=== PATIENT | female | born 1980 | race Caucasian/White ===

== ENCOUNTER → 2018-06-01 | Outpatient (CLI) | payer BC ==
--- NOTE | 2018-06-01 13:07 | Diagnostic Imaging Report ---
INDICATION: Kidney stones. TIME OF EXAM: 12:50 p.m. COMPARISON: No prior studies are available for comparison. FINDINGS: There are surgical clips in right upper quadrant. Bowel gas pattern is nonobstructed. No definite radiopaque urinary tract calculi are seen. IMPRESSION: No acute abnormality is detected. Dictated by: Dictated on workstation # [id number]
== END ==
LOC: RAD 12:41
PROVIDERS: ATTEND Urology
DX: N20.0 Calculus of kidney (principal)
CPT/HCPCS: 74018

== ENCOUNTER → 2018-06-08 | Outpatient (CLI) | payer BC ==
--- NOTE | 2018-06-08 15:39 | Diagnostic Imaging Report ---
INDICATION: Nephrolithiasis. EXAMINATION: KUB at 2:50 p.m. FINDINGS: Gallbladder is surgically absent. Bowel gas pattern is normal. There are no pathologic masses or calcifications seen. There are some phleboliths in the pelvis. IMPRESSION: Unremarkable KUB. Dictated by: Dictated on workstation # [id number]
--- NOTE | 2018-06-08 15:45 | Diagnostic Imaging Report ---
PROCEDURE: CT urinary tract, rule out kidney stone. TECHNIQUE: Multiple contiguous axial images were obtained through the abdomen and pelvis without the use of intravenous contrast. Auto Exposure Controls were utilized during the CT exam to meet ALARA standards for radiation dose reduction. INDICATION: Left flank pain. FINDINGS: There are some extra-ureteral pelvic phleboliths present. No definite opaque ureteral stone. There is no hydroureteronephrosis. Intrarenal stones bilaterally are nonobstructing measuring 2 mm in upper pole calyx on the right and 2 mm in the lower pole calyces bilaterally. No perinephric or periureteric edema. There is mild hepatic steatosis. No bile duct dilatation post cholecystectomy. The pancreas is negative. Spleen and adrenals are negative. There is no ascites, abscess, hematoma, or other fluid collection. There is no bowel obstruction or ileus. The uterus is absent. No adnexal lesion. The urinary bladder is unremarkable. There is no evidence for appendicitis or diverticulitis. IMPRESSION: 1. Nonobstructing bilateral intrarenal stones. No hydronephrosis or convincing ureteral stone. Pelvic phleboliths noted. No acute appearing abnormality. 2. Hepatic steatosis. No ascites or fluid collection. Dictated by: Dictated on workstation # [id number]
== END ==
LOC: RAD 14:33
PROVIDERS: ATTEND Urology
DX: N20.0 Calculus of kidney (principal); K76.0 Fatty (change of) liver, not elsewhere classified; I87.8 Other specified disorders of veins; Z90.49 Acquired absence of other specified parts of digestive tract
CPT/HCPCS: 74018; 74176

== ENCOUNTER → 2018-07-14 | Outpatient (CLI) | payer BC ==
--- NOTE | 2018-07-14 16:39 | Diagnostic Imaging Report ---
PROCEDURE: CT abdomen and pelvis without contrast. TECHNIQUE: Multiple contiguous axial images were obtained through the abdomen and pelvis without the use of intravenous contrast. Auto Exposure Controls were utilized during the CT exam to meet ALARA standards for radiation dose reduction. INDICATION: Back pain and hematuria. COMPARISON: CT abdomen and pelvis 06/08/2018. FINDINGS: Evaluation of the abdominal viscera is mildly limited without contrast. Lower chest: Stable calcified left pulmonary nodule compatible with old granulomatous infection. Remainder of the lungs are clear. Peritoneum: No free intraperitoneal air or fluid. Liver and biliary system: Diffuse hypoattenuation of the liver is unchanged and indicative of hepatic steatosis. The liver remains borderline enlarged measuring 18.5 cm in length. Cholecystectomy. No biliary duct dilatation. Spleen and Pancreas: Spleen is normal. Unenhanced pancreas is grossly normal. Adrenals: Normal. tract: Multiple bilateral punctate 2 mm nonobstructing renal stones are unchanged. No ureteral stone or obstructive uropathy. No solid renal mass by noncontrast imaging. Urinary bladder is normally filled without wall thickening. Status post hysterectomy. GI tract: Stomach is decompressed. No bowel obstruction. No pericolonic inflammatory changes. Normal appendix. Vasculature and Lymph nodes: Normal caliber aorta. No abdominal or pelvic lymphadenopathy. Musculoskeletal: No concerning osseous lesion. IMPRESSION: 1. Unchanged bilateral punctate nonobstructing renal stones. No obstructive uropathy. 2. Diffuse hepatic steatosis. Dictated by: Dictated on workstation # [id number]
== END ==
LOC: RAD 15:55
PROVIDERS: ATTEND Nurse Practitioner Family
DX: N20.0 Calculus of kidney (principal); K76.0 Fatty (change of) liver, not elsewhere classified; Z90.710 Acquired absence of both cervix and uterus; Z90.49 Acquired absence of other specified parts of digestive tract
CPT/HCPCS: 74176

== ENCOUNTER → 2019-03-07 | Outpatient (CLI) | payer BC ==
--- NOTE | 2019-03-07 15:56 | Diagnostic Imaging Report ---
INDICATION: Low back pain. TIME OF EXAM: 3:45 PM FINDINGS: Multiple views of the lumbar spine were obtained. Curvature and alignment is normal. Vertebral body heights are well-maintained. No acute compression fracture is seen. Disc spaces are well-maintained. IMPRESSION: No acute bony abnormality is detected. Dictated by: Dictated on workstation # [id number]
== END ==
LOC: RAD 15:04
PROVIDERS: ATTEND Family Medicine
DX: M54.5 Low back pain (principal)
CPT/HCPCS: 72100

== ENCOUNTER → 2019-06-22 | Outpatient (CLI) | payer BC ==
--- NOTE | 2019-06-22 09:36 | Diagnostic Imaging Report ---
PROCEDURE: MRI lumbar spine. TECHNIQUE: Multiplanar, multisequence MRI of the lumbar spine was performed without contrast. INDICATION: Low back pain as well as right hip and leg pain. Patient does have history of breast carcinoma. No prior studies are available for comparison. Curvature and alignment of the lumbar spine is normal. The vertebral body heights are maintained. The marrow signal intensity is unremarkable. No geographic marrow lesion is seen. No acute compression fracture is seen. There is normal height and signal intensity to the lumbar intervertebral discs. The conus is unremarkable at the L1 level. T12-L1: Central canal and neural foramina are widely patent. L1-T2: Central canal and neural foramina are widely patent. L2-L3: Central canal and neural foramina are widely patent. L3-L4: Mild ligamentous thickening. Central canal is widely patent. Neural foramina are patent. L4-L5: Mild ligamentous thickening. There is some flattening of the ventral thecal sac due to broad-based annular bulging. Central canal remains patent. There does appear to be some moderate narrowing of the lateral recesses bilaterally. No significant neural foraminal stenosis is seen. L5-S1: Central canal is patent. Broad-based disc/osteophyte complex flattens the ventral thecal sac and produces moderate lateral recess narrowing. There is also moderate bilateral neural foraminal stenosis. Facet arthropathy is also seen. Paraspinous tissues are unremarkable. IMPRESSION: Lower lumbar spondylosis with lateral recess and neural foraminal narrowing described level by level above. No significant central canal stenosis is detected. Dictated by: Dictated on workstation # [id number]
== END ==
LOC: RAD 08:33
PROVIDERS: ATTEND Family Medicine
DX: M47.817 Spondylosis without myelopathy or radiculopathy, lumbosacral region (principal); M48.07 Spinal stenosis, lumbosacral region; Z85.3 Personal history of malignant neoplasm of breast
CPT/HCPCS: 72148